=== PATIENT | female | born 2000 | race African-American/Black ===

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

== ENCOUNTER 2019-03-20 21:06 | Emergency (ER) | payer OTHER ==
[~2019-03-20] VITALS: Ht 152.4 cm; Wt 54.4 kg
[2019-03-20 21:15] VITALS: BP 99/72
--- NOTE | 2019-03-20 21:15 | NUR ---
ED Nurse Note: pt walked in c/o right side pain s/p fall, pt states she fell down the stairs.
--- NOTE | 2019-03-20 21:23 | Emergency Room Report ---
History of Present Illness General Chief Complaint: Pain Source: Patient Present Illness HPI This is a 18-year-old female with no past medical history. She presents with chief complaint of right leg pain. She injured this morning while walking down the steps. She missed a step and fell and hit the back of her knee against the edge of the step. She went down about 6 steps. Able get up and walk on it but it has been hurting since this morning. Swelling is mostly to the back of the knee and calf area. No loss of consciousness. Worse with movement. No relief with ibuprofen. Pain is 8 out of 10. Worse with walking. Able to bear weight. Allergies: Coded Allergies: No Known Allergies (Unverified , 10/26/15) Patient History Past Medical History: see triage record, old chart reviewed Past Surgical History: none Pertinent Family History: none Social History: Denies: smoking Last Menstrual Period: 03/19/19 Now: No Immunizations: UTD Reviewed Nursing Documentation: PMH: Agreed; PSxH: Agreed Nursing Documentation-PMH Past Medical History: No Stated History Review of Systems Eye: Denies: eye pain, blurred vision ENT: Denies: ear pain, nose congestion, throat swelling Respiratory: Denies: cough, shortness of breath Cardiovascular: Denies: chest pain, palpitations Gastrointestinal: Denies: abdominal pain, diarrhea, nausea, vomiting Musculoskeletal: Reports: joint pain, muscle pain; Denies: back pain Skin: Denies: rash Neurological: Denies: headache, numbness Endocrine: Denies: increased thirst, increased urine Hematologic/Lymphatic: Denies: easy bruising All Other Systems: negative except mentioned in HPI Physical Exam Vital Signs Date Time Temp Pulse Resp B/P (MAP) Pulse Ox O2 Delivery O2 Flow Rate FiO2 03/20/19 21:14 98.4 81 18 99/72 (81) 99 Room Air Vitals normal Sp02 EP Interpretation: reviewed, normal General Appearance: well appearing, no apparent distress, alert Head: normocephalic, atraumatic Eyes: bilateral eye PERRL, bilateral eye EOMI ENT: hearing grossly normal, normal pharynx Neck: full range of motion, supple, no meningismus Respiratory: chest non-tender, lungs clear, normal breath sounds Cardiovascular #1: regular rate, rhythm, no murmur Gastrointestinal: normal bowel sounds, non tender, no mass, no organomegaly, no bruit, non-distended Musculoskeletal: back normal, other - Right leg: She has swelling and tenderness to the proximal calf posteriorly. Also abrasion to the popliteal fossa. Pulses normal. Diffuse tenderness to the knee but stable. Ankle stable and nontender. Psychiatric: mood/affect normal Procedures Splinting Splinting : Consent: Verbal Location: Right knee Pre-Made Type: TOSIN wrap Pre-Proc Neuro Vasc Exam: normal Post-Proc Neuro Vasc Exam: normal Patient Tolerated: Well Complications: None Medical Decision Making Diagnostic Impression: Primary Impression: Contusion of right calf Qualified Codes: S80.11XA - Contusion of right lower leg, initial encounter Additional Impression: Right knee sprain Qualified Codes: S83.91XA - Sprain of unspecified site of right knee, initial encounter ER Course Patient with soft tissue injury from a fall. I see no evidence of any fracture dislocation. She has good pulses clinically, I see no evidence of any arterial injury. Other X-Ray Diagnostic Results Other X-Ray Diagnostic Results : X-Ray ordered: Right knee x-rays # of Views/Limited Vs Complete: 4 View Indication: Pain EP Interpretation: Yes Interpretation: no dislocation, no soft tissue swelling, no fractures Impression: No acute disease Electronically Signed by: Samuel Talbot MD Last Vital Signs Date Time Temp Pulse Resp B/P (MAP) Pulse Ox O2 Delivery O2 Flow Rate FiO2 03/20/19 21:14 98.4 81 18 99/72 (81) 99 Room Air Status: improved Disposition: HOME, SELF-CARE Condition: Stable Scripts Ibuprofen* (MOTRIN*) 600 Mg Tablet 600 MG ORAL THREE TIMES A DAY, #30 TAB 0 Refills Prov: Samuel Talbot MD 03/20/19 Hydrocodone/Acetaminophen 5-325* (HYDROCODONE/ACETAMINOPHEN 5-325*) 1 Each Tablet 1 TAB ORAL Q6H PRN for For Pain, #15 TAB 0 Refills Prov: Samuel Talbot MD 03/20/19 Additional Instructions: Elevate leg. Ice pack to the area. Use crutches as needed. Follow-up with your doctor in 7 days. If continue with pain after 1 to 2 weeks, may need an MRI. Return if worse. Samuel Talbot MD Mar 20, 2019 21:23
[2019-03-20] MEDS ORDERED: HYDROcodone/Acetamin 5/325 tab ORAL ONE (21:30)
--- NOTE | 2019-03-20 21:31 | NUR ---
ED Nurse Note: xray completed
[2019-03-20] MEDS ORDERED: IBUPROFEN600 MG ORAL (21:43)
[2019-03-20] MEDS ORDERED: HYDROCODON-ACE1 EA15 ORAL (21:43)
--- NOTE | 2019-03-20 21:48 | NUR ---
ER DISCHARGE NOTE: Patient is cleared to be discharged per ERMD, pt is aox4, on room air, with stable vital signs. pt was given dc and prescription instructions, pt was able to verbalize understanding, pt id bandremoved. pt is able to ambulate with steady gait with cruchtes. pt took all belongings. pt accompanied by mother
[2019-03-20 21:49] VITALS: BP 114/72
== END 2019-03-20 21:48 | disposition home or self-care (01) ==
LOC: EMR 21:35
DX: S80.11XA Contusion of right lower leg, initial encounter (principal); S83.91XA Sprain of unspecified site of right knee, initial encounter; W10.9XXA Fall (on) (from) unspecified stairs and steps, initial encounter; Y92.9 Unspecified place or not applicable
CPT/HCPCS: 99283